=== PATIENT | female | born 1985 | race Caucasian/White ===

== ENCOUNTER 2018-04-11 13:10 | Inpatient (IN) | payer OTHER ==
[2018-04-11 13:11] VITALS: BMI 29.2
--- NOTE | 2018-04-11 13:43 | C.PDOC ---
History Of Present Illness 33 years old female presents to ED for complaints of dysuria and abdominal pain associated with bilateral flank pain and subjective fever that began 2 days ago. Patient also reports dark stool noted 2 days ago. Denies any other physical complaints. Time Seen by Provider: 04/11/18 13:39 Chief Complaint (Nursing): Abdominal Pain History Per: Patient History/Exam Limitations: no limitations Onset/Duration Of Symptoms: Days (2) Current Symptoms Are (Timing): Still Present Location Of Pain/Discomfort: Diffuse Radiation Of Pain To:: Flank (Bilateral) Quality Of Discomfort: "Pain" Associated Symptoms: Fever, Urinary Symptoms. denies: Chills, Nausea, Vomiting, Diarrhea Exacerbating Factors: None Alleviating Factors: None Last Bowel Movement: Today Recent travel outside of the [place]: No Abnormal Vaginal Bleeding: No Past Medical History Reviewed: Historical Data, Nursing Documentation, Vital Signs Vital Signs: Last Vital Signs Temp 99.3 F 04/11/18 13:29 Pulse 105 H 04/11/18 13:29 Resp 16 04/11/18 13:29 BP 122/88 04/11/18 13:29 Pulse Ox 99 04/11/18 13:29 - Medical History PMH: Arthritis, Hepatitis (autoimmune), Rheumatoid Arthritis Family History: States: Unknown Family Hx - Social History Hx Tobacco Use: No Hx Alcohol Use: No Hx Substance Use: No - Immunization History Hx Tetanus Toxoid Vaccination: No Hx Influenza Vaccination: No Hx Pneumococcal Vaccination: No Review Of Systems Constitutional: Positive for: Fever. Negative for: Chills Gastrointestinal: Positive for: Abdominal Pain (Radiating to bilateral flank ). Negative for: Nausea, Vomiting, Diarrhea Genitourinary: Positive for: Dysuria. 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) Back: Normal Inspection, No CVA Tenderness, No Paraspinal Tenderness Extremity: Normal ROM, No Deformity Extremity: Bilateral: Atraumatic, Normal Color And Temperature, Normal ROM Neurological/Psych: Oriented x3, Normal Speech, Normal Motor, Normal Sensation, Normal Reflexes, Other (No focal deficits ) Gait: Steady ED Course And Treatment - Laboratory Results Result Diagrams: 04/11/18 14:14 04/11/18 14:14 O2 Sat by Pulse Oximetry: 99 (RA) Pulse Ox Interpretation: Normal Medical Decision Making Medical Decision Making: ro pyelo renal stone Plan: * Tylenol * IV fluids * Zofran * Occult blood * Urinalysis * Blood work * * pt with persistent ain nause vomiting needs admission accepted joan champagne Disposition - Disposition Disposition: HOSPITALIZED Disposition Time: 07:30 Condition: STABLE - Clinical Impression Clinical Impression: Pyelonephritis - Scribe Statement The provider has reviewed the documentation as recorded by the Scribe Janis Gastelum All medical record entries made by the Scribe were at my direction and personally dictated by me. I have reviewed the chart and agree that the record accurately reflects my personal performance of the history, physical exam, medical decision making, and the department course for this patient. I have also personally directed, reviewed, and agree with the discharge instructions and disposition. Decision To Admit - Pt Status Changed To: Hospital Disposition Of: Inpatient - Admit Certification Admit to Inpatient:: After my assessment, the patient will require hospitalization for at least two midnights. This is because of the severity of symptoms shown, intensity of services needed, and/or the medical risk in this patient being treated as an outpatient. - InPatient: Physician Admission Certification:: persistent vomtiing - . Bed Request Type: Regular Admitting Physician: Hakan Champagne Patient Diagnosis: Pyelonephritis
[2018-04-11] MEDS ORDERED: Sodium Chloride 0.9% 1,000 ML IV ONE (13:45)
[2018-04-11] MEDS ORDERED: Sodium Chloride 0.9% 1,000 ML ONE (14:03)
[2018-04-11 14:31] LABS: BASO % 0.5 % (0.0-2.0); EOS # 0.2 K/uL (0.0-0.7); HEMOGLOBIN 14.6 g/dL (11.0-16.0); LYMPH # 1.9 K/uL (1.0-4.3); MEAN CELL VOLUME 87.9 fL (81.0-99.0); MEAN CORPUSCULAR HEMOGLOBIN 30.9 pg (27.0-31.0); MEAN CORPUSCULAR HGB CONC 35.2 g/dL (33.0-37.0); MEAN PLATELET VOLUME 8.3 fL (7.2-11.7); MONO # 0.7 K/uL (0.0-0.8); MONO % 9.4 % (0.0-10.0); NEUT # 4.8 K/uL (1.8-7.0); NEUT % 62.1 % (50.0-75.0); NRBC % 0.1 % (0.0-2.0); RBC 4.72 Mil/uL (3.80-5.20); RED CELL DISTRIBUTION WIDTH 12.9 % (11.5-14.5); WHITE BLOOD COUNT 7.6 K/uL (4.8-10.8)
[2018-04-11 14:33] LABS: INR 1.2; PROTHROMBIN TIME 13.1 SECONDS (9.7-12.2)
[2018-04-11 14:34] LABS: ALBUMIN 3.6 g/dL (3.5-5.0); ALT/SGPT 86 U/L (9-52); AST/SGOT 67 U/L (14-36); BLOOD UREA NITROGEN 7 mg/dL (7-17); CALCIUM 8.9 mg/dl (8.6-10.4); GFR NON-AFRICAN AMERICAN > 60; LIPASE 136 U/L (23-300)
[2018-04-11 14:45] LABS: HCG,QUALITATIVE URINE NEGATIVE (NEGATIVE)
[2018-04-11 15:07] LABS: SQUAMOUS EPITHIAL 8 /hpf (0-5); URINE BACTERIA OCC (<OCC); URINE BILIRUBIN NEGATIVE (NEGATIVE); URINE BLOOD 2+ (NEGATIVE); URINE CLARITY Hazy (Clear); URINE COLOR Yellow (YELLOW); URINE GLUCOSE (UA) NORMAL (Normal); URINE LEUKOCYTE ESTERASE 3+ Leu/uL (Negative); URINE PROTEIN 2+ mg/dL (NEGATIVE)
--- NOTE | 2018-04-11 16:20 | CT ---
Date of service: 04/11/2018 PROCEDURE: CT abdomen and pelvis HISTORY: Bilateral flank pain-pyelonephritis vs renal stone COMPARISON: Correlation made with abdominal ultrasound 08/26/2017 TECHNIQUE: Contiguous axial images of the abdomen and pelvis performed without oral or intravenous contrast material. . Coronal and Sagittal reformats generated. Radiation dose: Total exam DLP = 1116.13 mGy-cm. This CT exam was performed using one or more of the following dose reduction techniques: Automated exposure control, adjustment of the mA and/or kV according to patient size, and/or use of iterative reconstruction technique. FINDINGS: LOWER THORAX: Lung bases clear. No evidence of infiltrate effusion or basilar pneumothorax. Heart size normal. LIVER: Liver exhibits normal size and attenuation pattern without masses collections or calcifications. Lung bases are GALLBLADDER AND BILE DUCTS: In the cholecystectomy. PANCREAS: Unremarkable. No mass. No ductal dilatation. SPLEEN: Spleen exhibits normal size and attenuation pattern without mass collection or calcification. Splenomegaly. ADRENALS: No adrenal lesions. KIDNEYS AND URETERS: There is mild right-sided hydronephrosis however no obvious ureteral calculi no evidence of right-sided nephrolithiasis or right-sided ureteral calculi.. Questionable minimal thickening of the urothelium proximal right ureter with slight infiltration-induration changes seen in the mesentery adjacent to the to the right ureter as well. Rule out a UTI versus recently passed calculus. Slight columnization of the left ureter with questionable thickening of the urothelium left ureter; rule out cystitis with ascending UTI BLADDER: Urinary bladder is incompletely distended which may account for thick-walled appearance however correlation with urinalysis recommended to exclude UTI REPRODUCTIVE: Uterus unremarkable. There appears to be a small ring-like calcification right adnexa. Questionable small metallic clip in the left aspect of the pelvis adjacent to the uterus possibly fallen into this location from prior gallbladder surgery. APPENDIX: Normal appearing appendix. BOWEL: Evaluation of the bowel is somewhat limited due to the lack of oral contrast material.. Stomach is partially distended with food debris liquid and air. Visualized loops of small bowel exhibit normal contour and caliber. No evidence of acute mechanical small bowel obstruction. Stool and air seen throughout the large bowel. No definitive mural wall thickening. PERITONEUM: Unremarkable. No fluid collection. No free air. Small to medium-sized fat containing umbilical hernia. LYMPH NODES: Unremarkable. No enlarged lymph nodes. VASCULATURE: Unremarkable. No aortic aneurysm. BONES: No fracture or destructive lesion. OTHER FINDINGS: None. IMPRESSION: There is mild right-sided hydronephrosis however no obvious ureteral calculi no evidence of right-sided nephrolithiasis or right-sided ureteral calculi.. Questionable minimal thickening of the urothelium proximal right ureter with slight infiltration-induration changes seen in the mesentery adjacent to the to the right ureter as well. Rule out a UTI versus recently passed calculus.. Slight columnization of the left ureter with questionable thickening of the urothelium left ureter; rule out cystitis with ascending UTI Mild bladder wall thickening in part due to incomplete distention however correlation with urinalysis recommended to exclude UTI Cholecystectomy. Small to medium sized fat containing umbilical hernia. Ring-like calcification right adnexal region
[2018-04-11 17:55] VITALS: RESP 20
[2018-04-12] MEDS: Enoxaparin 40 mg Syringe SC SCH (09:28)
[2018-04-12] MEDS ORDERED: cefTRIAXone IV 1 gm in Dextros 1 GM in Sodium Chloride 0.9% 100 ML IVPB SCH (11:30)
--- NOTE | 2018-04-12 12:36 | CP.PCM.CON ---
History of Present Illness - History of Present Illness History of Present Illness: 33 years old female presents to ED for complaints of dysuria and abdominal pain associated with bilateral flank pain and subjective fever that began 2 days ago. rx for pyelonephritis in progress - Medical History PMH: Arthritis, Hepatitis (autoimmune), Rheumatoid Arthritis Family History: States: Unknown Family Hx Review of Systems - Review of Systems All systems: reviewed and no additional remarkable complaints except - Constitutional Constitutional: As Per HPI - Breasts Breasts: absent: As Per HPI, Change in Shape, Mass, Pain, Nipple Discharge, Nipple Inversion, Skin Changes, Swelling, Other - Cardiovascular Cardiovascular: absent: As Per HPI, Acrocyanosis, Chest Pain, Chest Pain at Rest, Chest Pain with Activity, Claudication, Diaphoresis, Dyspnea, Dyspnea on Exertion, Edema, Irregular Heart Rhythm, Pain Radiating to Arm/Neck/Jaw, Leg Edema, Leg Ulcers, Lightheadedness, Orthopnea, Palpitations, Paroxysmal Nocturnal Dyspnea, Pedal Edema, Radiating Pain, Rapid Heart Rate, Slow Heart Rate, Syncope, Other - Respiratory Respiratory: absent: As Per HPI, Cough, Dyspnea, Hemoptysis, Dyspnea on Exertion, Wheezing, Snoring, Stridor, Pain on Inspiration, Chest Congestion, Excessive Mucous Production, Change in Mucous Color, Pain with Coughing, Other - Gastrointestinal Gastrointestinal: absent: As Per HPI, Abdominal Pain, Belching, Bloating, Change in Bowel Habits, Change in Stool Character, Coffee Ground Emesis, Constipation, Cramping, Diarrhea, Dyspepsia, Dysphagia, Early Satiety, Excessive Flatus, Fecal Incontinence, Heartburn, Hematemesis, Hematochezia, Loose Stools, Melena, Nausea, Odynophagia, Temesmus, Vomiting, Other - Genitourinary Genitourinary: As Per HPI Past Patient History - Infectious Disease Hx of Infectious Diseases: None - Past Medical History & Family History Past Medical History?: Yes - Past Social History Smoking Status: Never Smoked - ENDOCRINE/METABOLIC Hx Systemic Lupus Erythematosus: Yes - HEMATOLOGICAL/ONCOLOGICAL Hx Bruising: Yes (legg/thighs) Other/Comment: Lupus,inmune hepatitis - MUSCULOSKELETAL/RHEUMATOLOGICAL Hx Arthritis: Yes Hx Rheumatoid Arthritis: Yes - GASTROINTESTINAL Other/Comment: autoimmune hepatitis - PSYCHIATRIC Hx Substance Use: No - SURGICAL HISTORY Hx Surgeries: Yes Hx Cholecystectomy: Yes (2017 [facility] [place]) Other/Comment: biopsy ,liver 2005- dx inmune hep - ANESTHESIA Hx Anesthesia: Yes Hx Anesthesia Reactions: No Hx Malignant Hyperthermia: No Has any member of the family had a problem w/ anesthesia?: No Meds Allergies/Adverse Reactions: Allergies Allergy/AdvReac Type Severity Reaction Status Date / Time No Known Allergies Allergy Verified 05/15/16 09:25 - Medications Medications: Current Medications Acetaminophen (Tylenol 325mg Tab) 650 mg PO Q4 PRN PRN Reason: Fever >100.4 F Acetaminophen (Tylenol 325mg Tab) 650 mg PO Q4 PRN PRN Reason: Pain, Mild (1-3) Azathioprine (Imuran) 50 mg PO DAILY [facility] Last Admin: 04/12/18 09:14 Dose: 50 mg Enoxaparin Sodium (Lovenox) 40 mg SC DAILY [facility] Last Admin: 04/12/18 09:28 Dose: 40 mg Hydroxychloroquine Sulfate (Plaquenil) 200 mg PO BID [facility]; Protocol Last Admin: 04/12/18 09:14 Dose: 200 mg Ceftriaxone Sodium 1 gm/ (Sodium Chloride) 100 mls @ 200 mls/hr IVPB Q12H [facility]; Protocol Last Admin: 04/12/18 11:57 Dose: 200 mls/hr Influenza Virus Vaccine (Fluzone Quad [id number]) 60 mcg IM .ONCE ONE Stop: 04/14/18 10:01 Pneumococcal Polyvalent Vaccine (Pneumovax 23 Vaccine) 0.5 ml IM .ONCE ONE Stop: 04/14/18 10:01 Prednisone (Prednisone Tab) 10 mg PO DAILY [facility] Last Admin: 04/12/18 09:14 Dose: 10 mg Tramadol HCl (Ultram) 50 mg PO Q8 PRN PRN Reason: Pain, severe (8-10) Last Admin: 04/12/18 12:24 Dose: 50 mg Physical Exam - Constitutional Appears: Toxic, In Acute Distress, Chronically Ill - Head Exam Head Exam: NORMOCEPHALIC - Eye Exam Eye Exam: PERRL - ENT Exam ENT Exam: Mucous Membranes Dry - Neck Exam Neck exam: Negative for: Lymphadenopathy - Respiratory Exam Respiratory Exam: Decreased Breath Sounds - Cardiovascular Exam Cardiovascular Exam: REGULAR RHYTHM - GI/Abdominal Exam GI & Abdominal Exam: Diminished Bowel Sounds, Soft. absent: Tenderness - Rectal Exam Rectal Exam: Deferred - Exam Exam: NORMAL INSPECTION - Extremities Exam Extremities exam: Negative for: pedal edema - Back Exam Back exam: CVA tenderness (L). absent: CVA tenderness (R), paraspinal tenderness - Neurological Exam Neurological exam: Alert, CN II-XII Intact, Oriented x3, Reflexes Normal - Psychiatric Exam Psychiatric exam: Normal Mood Results - Vital Signs Recent Vital Signs: Last Vital Signs Temp 98.2 F 04/12/18 07:32 Pulse 72 04/12/18 07:32 Resp 20 04/12/18 07:32 BP 112/67 04/12/18 07:32 Pulse Ox 99 04/12/18 07:43 - Labs Result Diagrams: 04/13/18 08:23 04/13/18 08:23 Labs: Laboratory Results - last 24 hr 04/11/18 04/11/18 04/11/18 14:14 14:14 14:14 WBC 7.6 RBC 4.72 Hgb 14.6 Hct 41.4 MCV 87.9 MCH 30.9 MCHC 35.2 RDW 12.9 Plt Count 188 MPV 8.3 Neut % (Auto) 62.1 Lymph % (Auto) 25.0 Bollinger % (Auto) 9.4 Eos % (Auto) 3.0 Baso % (Auto) 0.5 Neut # (Auto) 4.8 Lymph # (Auto) 1.9 Bollinger # (Auto) 0.7 Eos # (Auto) 0.2 Baso # (Auto) 0.0 PT 13.1 H INR 1.2 APTT 32 Sodium Potassium Chloride Carbon Dioxide Anion Gap BUN Creatinine Est GFR ( Amer) Est GFR (Non-Af Amer) Random Glucose Calcium Total Bilirubin AST ALT Alkaline Phosphatase Total Protein Albumin Globulin Albumin/Globulin Ratio Lipase Urine Color Yellow Urine Clarity Hazy Urine pH 6.0 Ur Specific White [place]wl 1.019 Urine Protein 2+ H Urine Glucose (UA) Normal Urine Ketones Negative Urine Blood 2+ H Urine Nitrate Negative Urine Bilirubin Negative Urine Urobilinogen 2.0 H Ur Leukocyte Esterase 3+ H Urine WBC (Auto) 397 H Urine RBC (Auto) 93 H Ur Squamous Epith Cells 8 H Urine Bacteria Occ H Urine HCG, Qual Negative Stool Occult Blood 04/11/18 04/11/18 14:14 14:17 WBC RBC Hgb Hct MCV MCH MCHC RDW Plt Count MPV Neut % (Auto) Lymph % (Auto) Bollinger % (Auto) Eos % (Auto) Baso % (Auto) Neut # (Auto) Lymph # (Auto) Bollinger # (Auto) Eos # (Auto) Baso # (Auto) PT INR APTT Sodium 140 Potassium 3.7 Chloride 105 Carbon Dioxide 23 Anion Gap 15 BUN 7 Creatinine 0.5 L Est GFR ( Amer) > 60 Est GFR (Non-Af Amer) > 60 Random Glucose 98 Calcium 8.9 Total Bilirubin 0.7 AST 67 H ALT 86 H D Alkaline Phosphatase 117 Total Protein 7.2 Albumin 3.6 Globulin 3.5 Albumin/Globulin Ratio 1.0 Lipase 136 Urine Color Urine Clarity Urine pH Ur Specific [place]wl Urine Protein Urine Glucose (UA) Urine Ketones Urine Blood Urine Nitrate Urine Bilirubin Urine Urobilinogen Ur Leukocyte Esterase Urine WBC (Auto) Urine RBC (Auto) Ur Squamous Epith Cells Urine Bacteria Urine HCG, Qual Stool Occult Blood Negative Assessment & Plan (1) Pyelonephritis Status: Acute - Assessment and Plan (Free Text) Assessment: IV cefepime gu eval
[2018-04-12] MEDS: Cefepime IV 1 gm in Dextrose 1 GM/50 ML BAG IVPB SCH (14:26)
[2018-04-12] MEDS: Sodium Chloride 0.9% 1,000 ML IV SCH (14:30)
--- NOTE | 2018-04-12 19:47 | CP.PCM.HP ---
Past Patient History - Infectious Disease Hx of Infectious Diseases: None - Past Medical History & Family History Past Medical History?: Yes - Past Social History Smoking Status: Never Smoked - ENDOCRINE/METABOLIC Hx Systemic Lupus Erythematosus: Yes - HEMATOLOGICAL/ONCOLOGICAL Hx Bruising: Yes (legg/thighs) Other/Comment: Lupus,inmune hepatitis - MUSCULOSKELETAL/RHEUMATOLOGICAL Hx Arthritis: Yes Hx Rheumatoid Arthritis: Yes - GASTROINTESTINAL Other/Comment: autoimmune hepatitis - PSYCHIATRIC Hx Substance Use: No - SURGICAL HISTORY Hx Surgeries: Yes Hx Chole[place]ectomy: Yes ([place] [facility] [place] Other/Comment: biopsy ,liver 2005- dx inmune hep - ANESTHESIA Hx Anesthesia: Yes Hx Anesthesia Reactions: No Hx Malignant Hyperthermia: No Has any member of the family had a problem w/ anesthesia?: No Meds Allergies/Adverse Reactions: Allergies Allergy/AdvReac Type Severity Reaction Status Date / Time No Known Allergies Allergy Verified 05/15/16 09:25 Results - Vital Signs Recent Vital Signs: Last Vital Signs Temp 97.8 F 04/12/18 15:53 Pulse 76 04/12/18 15:53 Resp 20 04/12/18 15:53 BP 124/83 04/12/18 15:53 Pulse Ox 97 04/12/18 15:53 - Labs Result Diagrams: 04/11/18 14:14 04/11/18 14:14
[2018-04-13] MEDS: Cefepime IV 1 gm in Dextrose 1 GM/50 ML BAG IVPB SCH ×2 (00:01→12:18)
[2018-04-13] MEDS: Sodium Chloride 0.9% 1,000 ML IV SCH ×2 (02:45→14:06)
[2018-04-13 08:30] LABS: BASO % 0.5 % (0.0-2.0); EOS # 0.2 K/uL (0.0-0.7); EOS % 3.8 % (0.0-4.0); HEMOGLOBIN 14.9 g/dL (11.0-16.0); LYMPH % 39.8 % (20.0-40.0); MEAN CELL VOLUME 89.2 fL (81.0-99.0); MEAN CORPUSCULAR HEMOGLOBIN 31.2 pg (27.0-31.0); MEAN PLATELET VOLUME 8.4 fL (7.2-11.7); MONO # 0.3 K/uL (0.0-0.8); MONO % 6.5 % (0.0-10.0); NEUT # 2.4 K/uL (1.8-7.0); NEUT % 49.4 % (50.0-75.0); NRBC % 0.1 % (0.0-2.0); RBC 4.78 Mil/uL (3.80-5.20); RED CELL DISTRIBUTION WIDTH 13.1 % (11.5-14.5); WHITE BLOOD COUNT 4.9 K/uL (4.8-10.8)
[2018-04-13 08:50] LABS: ALBUMIN 3.5 g/dL (3.5-5.0); ALT/SGPT 102 U/L (9-52); AST/SGOT 113 U/L (14-36); BLOOD UREA NITROGEN 8 mg/dL (7-17); CALCIUM 8.7 mg/dl (8.6-10.4); GFR NON-AFRICAN AMERICAN > 60
[2018-04-13] MEDS: Enoxaparin 40 mg Syringe SC SCH (09:37)
--- NOTE | 2018-04-13 10:47 | CP.PCM.PN ---
Subjective - Date & Time of Evaluation Date of Evaluation: 04/13/18 Time of Evaluation: 10:35 - Subjective Subjective: 33 y/o F with pmhx of lupus, RA, autoimmune hepatitis, anemia who presents for 3 days of dysuria, increased urge to urinate, and lower abdominal pain that radiated to the back. Patient did not notice any change in urine color or smell. Upon admission she was placed on ABx and she has been doing better now. Reports improvement overall, however she notes persistent lower back pain. Rheum: Dr. Quijano PMHx: lupus, RA, autoimmune hepatitis, anemia Psurg: liver biopsy 2004, cholecystectomy 2017 Famhx: mom: DMII, HTN, CAD, HLD, pacemaker, stroke, colon ca at 40 dad: DMII, HTN, CAD, COPD, asthma, HLD maternal aunt: lupus social: quit smoking 3 years ago, smoked 1-2ppd for 10 years, denies alcohol and drugs Objective - Vital Signs/Intake and Output Vital Signs (last 24 hours): Temp Pulse Resp BP Pulse Ox 98.2 F 67 20 115/73 99 04/13/18 08:19 04/13/18 08:19 04/13/18 08:19 04/13/18 08:19 04/13/18 08:19 Intake and Output: 04/13/18 04/13/18 06:59 18:59 Intake Total 840 Balance 840 - Medications Medications: Current Medications Acetaminophen (Tylenol 325mg Tab) 650 mg PO Q4 PRN PRN Reason: Fever >100.4 F Acetaminophen (Tylenol 325mg Tab) 650 mg PO Q4 PRN PRN Reason: Pain, Mild (1-3) Azathioprine (Imuran) 50 mg PO DAILY [facility] Last Admin: 04/13/18 09:37 Dose: 50 mg Enoxaparin Sodium (Lovenox) 40 mg SC DAILY [facility] Last Admin: 04/13/18 09:37 Dose: 40 mg Hydroxychloroquine Sulfate (Plaquenil) 200 mg PO BID [facility]; Protocol Last Admin: 04/13/18 09:37 Dose: 200 mg Cefepime HCl (Maxipime Iv 1 Gm Premix) 1 gm in 50 mls @ 100 mls/hr IVPB Q12H [facility]; Protocol Last Admin: 04/13/18 00:01 Dose: 100 mls/hr Sodium Chloride (Sodium Chloride 0.9%) 1,000 mls @ 80 mls/hr IV .[id number] [facility] Last Admin: 04/13/18 02:45 Dose: 80 mls/hr Influenza Virus Vaccine (Fluzone Quad [id number]) 60 mcg IM .ONCE ONE Stop: 04/14/18 10:01 Morphine Sulfate (Morphine) 2 mg IVP Q4 PRN PRN Reason: Pain, severe (8-10) Last Admin: 04/13/18 08:09 Dose: 2 mg Pneumococcal Polyvalent Vaccine (Pneumovax 23 Vaccine) 0.5 ml IM .ONCE ONE Stop: 04/14/18 10:01 Prednisone (Prednisone Tab) 10 mg PO DAILY [facility] Last Admin: 04/13/18 09:37 Dose: 10 mg - Labs Labs: 04/13/18 08:23 04/13/18 08:23 PT 13.1 SECONDS (9.7-12.2) H 04/11/18 14:14 INR 1.2 04/11/18 14:14 APTT 32 SECONDS (21-34) 04/11/18 14:14 - Constitutional Appears: No Acute Distress - Head Exam Head Exam: ATRAUMATIC, NORMOCEPHALIC - Eye Exam Eye Exam: EOMI - ENT Exam ENT Exam: Mucous Membranes Moist - Respiratory Exam Respiratory Exam: Clear to Ausculation Bilateral, NORMAL BREATHING PATTERN - Cardiovascular Exam Cardiovascular Exam: REGULAR RHYTHM - GI/Abdominal Exam GI & Abdominal Exam: Soft, Tenderness (mild). absent: Guarding - Back Exam Back Exam: CVA tenderness (L), CVA tenderness (R) - Neurological Exam Neurological Exam: Alert, Awake, Oriented x3 - Psychiatric Exam Psychiatric exam: Normal Affect, Normal Mood - Skin Skin Exam: Dry, Warm Assessment and Plan - Assessment and Plan (Free Text) Plan: UTI Urology consult placed to Dr. Solomon dominguez appreciated ID consult placed to Dr. Briana dominguez appreciated CT abdomen pelvis- consider passed stone, no obstruction, areas of thickening consistent with UTI UA: +3 Leukocyte esterase, 397 WBC Urine Cx: G- rods- follow up G&S Blood Cx: NGTD Normal white count today Afebrile Tylenol prn pain and fever Morphine 2mg IVP q4prn breakthrough pain Cefepime 1g q12hrs Lupus Plaquenil 200mg PO BID Auto-immune hepatitis Imuran 50mg PO daily elevated LFT's- monitoring RA Prednisone 10mg PO QD Plaquenil 200mg PO BID Imuran 50mg PO daily PPX Lovenox 40mg SC daily Pepcid 20mg PO BID Case to be discussed with Dr. Marinelli All medical management per Dr. Sukhi Marinelli
--- NOTE | 2018-04-13 12:45 | CP.PCM.PN ---
Subjective - Date & Time of Evaluation Date of Evaluation: 04/13/18 Time of Evaluation: 07:00 - Subjective Subjective: Reports improvement overall, however she notes persistent lower back pain. Objective - Vital Signs/Intake and Output Vital Signs (last 24 hours): Temp Pulse Resp BP Pulse Ox 98.2 F 67 20 115/73 99 04/13/18 08:19 04/13/18 08:19 04/13/18 08:19 04/13/18 08:19 04/13/18 08:19 Intake and Output: 04/13/18 04/13/18 06:59 18:59 Intake Total 840 Balance 840 - Medications Medications: Current Medications Acetaminophen (Tylenol 325mg Tab) 650 mg PO Q4 PRN PRN Reason: Fever >100.4 F Acetaminophen (Tylenol 325mg Tab) 650 mg PO Q4 PRN PRN Reason: Pain, Mild (1-3) Azathioprine (Imuran) 50 mg PO DAILY [facility] Last Admin: 04/13/18 09:37 Dose: 50 mg Enoxaparin Sodium (Lovenox) 40 mg SC DAILY [facility] Last Admin: 04/13/18 09:37 Dose: 40 mg Famotidine (Pepcid) 20 mg PO BID [facility] Hydroxychloroquine Sulfate (Plaquenil) 200 mg PO BID [facility]; Protocol Last Admin: 04/13/18 09:37 Dose: 200 mg Cefepime HCl (Maxipime Iv 1 Gm Premix) 1 gm in 50 mls @ 100 mls/hr IVPB Q12H [facility]; Protocol Last Admin: 04/13/18 12:18 Dose: 100 mls/hr Sodium Chloride (Sodium Chloride 0.9%) 1,000 mls @ 80 mls/hr IV .[id number] [facility] Last Admin: 04/13/18 02:45 Dose: 80 mls/hr Influenza Virus Vaccine (Fluzone Quad [id number]) 60 mcg IM .ONCE ONE Stop: 04/14/18 10:01 Morphine Sulfate (Morphine) 2 mg IVP Q4 PRN PRN Reason: Pain, severe (8-10) Last Admin: 04/13/18 12:18 Dose: 2 mg Pneumococcal Polyvalent Vaccine (Pneumovax 23 Vaccine) 0.5 ml IM .ONCE ONE Stop: 04/14/18 10:01 Prednisone (Prednisone Tab) 10 mg PO DAILY [facility] Last Admin: 04/13/18 09:37 Dose: 10 mg - Labs Labs: 04/13/18 08:23 04/13/18 08:23 PT 13.1 SECONDS (9.7-12.2) H 04/11/18 14:14 INR 1.2 04/11/18 14:14 APTT 32 SECONDS (21-34) 04/11/18 14:14 - Constitutional Appears: Non-toxic - Head Exam Head Exam: NORMOCEPHALIC - Eye Exam Eye Exam: absent: Scleral icterus - ENT Exam ENT Exam: Mucous Membranes Dry - Neck Exam Neck Exam: absent: Lymphadenopathy - Respiratory Exam Respiratory Exam: Decreased Breath Sounds - Cardiovascular Exam Cardiovascular Exam: REGULAR RHYTHM - GI/Abdominal Exam GI & Abdominal Exam: Distended Assessment and Plan (1) Pyelonephritis Status: Acute - Assessment and Plan (Free Text) Assessment: await cultures
--- NOTE | 2018-04-13 15:52 | CP.PCM.PN ---
Subjective - Date & Time of Evaluation Date of Evaluation: 04/13/18 Time of Evaluation: 07:30 - Subjective Subjective: clinically same Objective - Vital Signs/Intake and Output Vital Signs (last 24 hours): Temp Pulse Resp BP Pulse Ox 98.2 F 67 20 115/73 99 04/13/18 08:19 04/13/18 08:19 04/13/18 08:19 04/13/18 08:19 04/13/18 08:19 Intake and Output: 04/13/18 04/13/18 06:59 18:59 Intake Total 1954 Balance 1954 - Medications Medications: Current Medications Acetaminophen (Tylenol 325mg Tab) 650 mg PO Q4 PRN PRN Reason: Fever >100.4 F Acetaminophen (Tylenol 325mg Tab) 650 mg PO Q4 PRN PRN Reason: Pain, Mild (1-3) Azathioprine (Imuran) 50 mg PO DAILY [facility] Last Admin: 04/13/18 09:37 Dose: 50 mg Enoxaparin Sodium (Lovenox) 40 mg SC DAILY [facility] Last Admin: 04/13/18 09:37 Dose: 40 mg Famotidine (Pepcid) 20 mg PO BID [facility] Hydroxychloroquine Sulfate (Plaquenil) 200 mg PO BID [facility]; Protocol Last Admin: 04/13/18 09:37 Dose: 200 mg Cefepime HCl (Maxipime Iv 1 Gm Premix) 1 gm in 50 mls @ 100 mls/hr IVPB Q12H [facility]; Protocol Last Admin: 04/13/18 12:18 Dose: 100 mls/hr Sodium Chloride (Sodium Chloride 0.9%) 1,000 mls @ 80 mls/hr IV .[id number] [facility] Last Admin: 04/13/18 14:06 Dose: Not Given Influenza Virus Vaccine (Fluzone Quad [id number]) 60 mcg IM .ONCE ONE Stop: 04/14/18 10:01 Morphine Sulfate (Morphine) 2 mg IVP Q4 PRN PRN Reason: Pain, severe (8-10) Last Admin: 04/13/18 12:18 Dose: 2 mg Pneumococcal Polyvalent Vaccine (Pneumovax 23 Vaccine) 0.5 ml IM .ONCE ONE Stop: 04/14/18 10:01 Prednisone (Prednisone Tab) 10 mg PO DAILY [facility] Last Admin: 04/13/18 09:37 Dose: 10 mg - Labs Labs: 04/13/18 08:23 04/13/18 08:23 PT 13.1 SECONDS (9.7-12.2) H 04/11/18 14:14 INR 1.2 04/11/18 14:14 APTT 32 SECONDS (21-34) 04/11/18 14:14 - Constitutional Appears: Well - Head Exam Head Exam: ATRAUMATIC, NORMAL INSPECTION, NORMOCEPHALIC - Eye Exam Eye Exam: EOMI, Normal appearance, PERRL Pupil Exam: NORMAL ACCOMODATION, PERRL - ENT Exam ENT Exam: Mucous Membranes Moist, Normal Exam - Neck Exam Neck Exam: Full ROM, Normal Inspection. absent: Lymphadenopathy - Respiratory Exam Respiratory Exam: Decreased Breath Sounds - Cardiovascular Exam Cardiovascular Exam: REGULAR RHYTHM, +S1, +S2 - GI/Abdominal Exam GI & Abdominal Exam: Soft, Diminished Bowel Sounds - Rectal Exam Rectal Exam: Deferred
[2018-04-14] MEDS: Cefepime IV 1 gm in Dextrose 1 GM/50 ML BAG IVPB SCH ×3 (00:58→13:39)
[2018-04-14] MEDS: Sodium Chloride 0.9% 1,000 ML IV SCH ×3 (02:15→15:25)
[2018-04-14 07:21] LABS: BASO % 0.4 % (0.0-2.0); EOS # 0.2 K/uL (0.0-0.7); EOS % 3.7 % (0.0-4.0); HEMOGLOBIN 13.9 g/dL (11.0-16.0); LYMPH # 1.8 K/uL (1.0-4.3); LYMPH % 36.5 % (20.0-40.0); MEAN CELL VOLUME 90.2 fL (81.0-99.0); MEAN CORPUSCULAR HEMOGLOBIN 31.9 pg (27.0-31.0); MEAN CORPUSCULAR HGB CONC 35.3 g/dL (33.0-37.0); MEAN PLATELET VOLUME 8.5 fL (7.2-11.7); MONO # 0.4 K/uL (0.0-0.8); MONO % 7.7 % (0.0-10.0); NEUT # 2.6 K/uL (1.8-7.0); NEUT % 51.7 % (50.0-75.0); RBC 4.36 Mil/uL (3.80-5.20); RED CELL DISTRIBUTION WIDTH 12.9 % (11.5-14.5)
[2018-04-14 08:16] LABS: ALBUMIN 3.3 g/dL (3.5-5.0); ALT/SGPT 85 U/L (9-52); AST/SGOT 75 U/L (14-36); BLOOD UREA NITROGEN 8 mg/dL (7-17); CALCIUM 8.6 mg/dl (8.6-10.4); GFR NON-AFRICAN AMERICAN > 60
[2018-04-14] MEDS ORDERED: Pneumococcal 23-Valent Vaccine IM ONE (10:00)
[2018-04-14] MEDS ORDERED: Influenza Vaccine 60 MCG/0.5 ML SYR (3 yr & up) IM ONE (10:00)
[2018-04-14] MEDS: Enoxaparin 40 mg Syringe SC SCH (10:36)
--- NOTE | 2018-04-14 16:32 | CP.PCM.PN ---
Subjective - Date & Time of Evaluation Date of Evaluation: 04/14/18 Time of Evaluation: 09:00 - Subjective Subjective: c/o severe pain needs eval repeat CT pending IV rx reordered Objective - Vital Signs/Intake and Output Vital Signs (last 24 hours): Temp Pulse Resp BP Pulse Ox 98.2 F 63 20 121/81 98 04/14/18 07:42 04/14/18 07:42 04/14/18 07:42 04/14/18 07:42 04/14/18 07:42 Intake and Output: 04/14/18 04/14/18 06:59 18:59 Intake Total 840 Balance 840 - Medications Medications: Current Medications Acetaminophen (Tylenol 325mg Tab) 650 mg PO Q4 PRN PRN Reason: Fever >100.4 F Acetaminophen (Tylenol 325mg Tab) 650 mg PO Q4 PRN PRN Reason: Pain, Mild (1-3) Azathioprine (Imuran) 50 mg PO DAILY [facility] Last Admin: 04/14/18 10:36 Dose: 50 mg Enoxaparin Sodium (Lovenox) 40 mg SC DAILY [facility] Last Admin: 04/14/18 10:36 Dose: 40 mg Famotidine (Pepcid) 20 mg PO BID [facility] Last Admin: 04/14/18 10:37 Dose: 20 mg Hydroxychloroquine Sulfate (Plaquenil) 200 mg PO BID [facility]; Protocol Last Admin: 04/14/18 10:36 Dose: 200 mg Cefepime HCl (Maxipime Iv 1 Gm Premix) 1 gm in 50 mls @ 100 mls/hr IVPB Q12H [facility]; Protocol Last Admin: 04/14/18 13:39 Dose: Not Given Sodium Chloride (Sodium Chloride 0.9%) 1,000 mls @ 80 mls/hr IV .[id number] [facility] Last Admin: 04/14/18 15:25 Dose: Not Given Morphine Sulfate (Morphine) 2 mg IVP Q4 PRN PRN Reason: Pain, severe (8-10) Last Admin: 04/14/18 15:20 Dose: 2 mg Prednisone (Prednisone Tab) 10 mg PO DAILY [facility] Last Admin: 04/14/18 10:37 Dose: 10 mg - Labs Labs: 04/14/18 07:00 04/14/18 07:00 PT 13.1 SECONDS (9.7-12.2) H 04/11/18 14:14 INR 1.2 04/11/18 14:14 APTT 32 SECONDS (21-34) 04/11/18 14:14 - Constitutional Appears: Non-toxic, Chronically Ill - Head Exam Head Exam: NORMOCEPHALIC - Eye Exam Eye Exam: PERRL - ENT Exam ENT Exam: Mucous Membranes Dry - Neck Exam Neck Exam: absent: Lymphadenopathy - Respiratory Exam Respiratory Exam: Decreased Breath Sounds - Cardiovascular Exam Cardiovascular Exam: REGULAR RHYTHM, +S1, +S2 - GI/Abdominal Exam GI & Abdominal Exam: Distended - Rectal Exam Rectal Exam: Deferred Assessment and Plan (1) Pyelonephritis Status: Acute - Assessment and Plan (Free Text) Assessment: ? radiculopathy pyelo severe pain consider and Neuro eval
--- NOTE | 2018-04-14 16:36 | CP.PCM.PN ---
Subjective - Date & Time of Evaluation Date of Evaluation: 04/14/18 Time of Evaluation: 09:30 - Subjective Subjective: PGY 3 Med Note- Dr. Yeison Marinelli's service Patient seen and examined in no acute distress. Patient admits to back discomfort. Patient denies dysuria, chest pain or palpitations at this time Objective - Vital Signs/Intake and Output Vital Signs (last 24 hours): Temp Pulse Resp BP Pulse Ox 98.2 F 63 20 121/81 98 04/14/18 07:42 04/14/18 07:42 04/14/18 07:42 04/14/18 07:42 04/14/18 07:42 Intake and Output: 04/14/18 04/14/18 06:59 18:59 Intake Total 840 Balance 840 - Medications Medications: Current Medications Acetaminophen (Tylenol 325mg Tab) 650 mg PO Q4 PRN PRN Reason: Fever >100.4 F Acetaminophen (Tylenol 325mg Tab) 650 mg PO Q4 PRN PRN Reason: Pain, Mild (1-3) Azathioprine (Imuran) 50 mg PO DAILY [facility] Last Admin: 04/14/18 10:36 Dose: 50 mg Enoxaparin Sodium (Lovenox) 40 mg SC DAILY [facility] Last Admin: 04/14/18 10:36 Dose: 40 mg Famotidine (Pepcid) 20 mg PO BID [facility] Last Admin: 04/14/18 10:37 Dose: 20 mg Hydroxychloroquine Sulfate (Plaquenil) 200 mg PO BID [facility]; Protocol Last Admin: 04/14/18 10:36 Dose: 200 mg Cefepime HCl (Maxipime Iv 1 Gm Premix) 1 gm in 50 mls @ 100 mls/hr IVPB Q12H [facility]; Protocol Last Admin: 04/14/18 13:39 Dose: Not Given Sodium Chloride (Sodium Chloride 0.9%) 1,000 mls @ 80 mls/hr IV .[id number] [facility] Last Admin: 04/14/18 15:25 Dose: Not Given Morphine Sulfate (Morphine) 2 mg IVP Q4 PRN PRN Reason: Pain, severe (8-10) Last Admin: 04/14/18 15:20 Dose: 2 mg Prednisone (Prednisone Tab) 10 mg PO DAILY [facility] Last Admin: 04/14/18 10:37 Dose: 10 mg - Labs Labs: 04/14/18 07:00 04/14/18 07:00 PT 13.1 SECONDS (9.7-12.2) H 04/11/18 14:14 INR 1.2 04/11/18 14:14 APTT 32 SECONDS (21-34) 04/11/18 14:14 - Constitutional Appears: Non-toxic, No Acute Distress - Head Exam Head Exam: ATRAUMATIC, NORMAL INSPECTION - Eye Exam Eye Exam: EOMI, Normal appearance - ENT Exam ENT Exam: Mucous Membranes Moist - Neck Exam Neck Exam: Full ROM - Respiratory Exam Respiratory Exam: NORMAL BREATHING PATTERN - Cardiovascular Exam Cardiovascular Exam: +S1, +S2 - GI/Abdominal Exam GI & Abdominal Exam: Soft, Normal Bowel Sounds - Extremities Exam Extremities Exam: Full ROM - Back Exam Back Exam: NORMAL INSPECTION - Neurological Exam Neurological Exam: Alert, Awake, Oriented x3 - Psychiatric Exam Psychiatric exam: Normal Affect, Normal Mood - Skin Skin Exam: Normal Color, Warm Assessment and Plan - Assessment and Plan (Free Text) Assessment: UTI Urology consult placed to Dr. Solomon Rockwell- F/U ID consult placed to Dr. Mota - [facility] appreciated CT abdomen pelvis- consider passed stone, no obstruction, areas of thickening consistent with UTI UA: +3 Leukocyte esterase, 397 WBC. Repeat UA and UC bc of initial low colony count Urine Cx: G- rods- follow up G&S Blood Cx: NGTD Motrin PRN. Tylenol discontinued bc of elevated LFTs Morphine 2mg IVP q4prn breakthrough pain increased to Morphine 4 mg Cefepime 1g q12hrs Lupus Plaquenil 200mg PO BID Auto-immune hepatitis Imuran 50mg PO daily Elevated LFT's- monitoring Rheumatoid Arthritis Prednisone 10mg PO QD Plaquenil 200mg PO BID Imuran 50mg PO daily PPX Lovenox 40mg SC daily Pepcid 20mg PO BID Case discussed with Dr. Marinelli All medical management and planning per Dr. Sukhi Marinelli
[2018-04-14] MEDS: Morphine 4 MG/ML VIAL IVP PRN (18:11)
--- NOTE | 2018-04-14 21:01 | CP.PCM.PN ---
Subjective - Date & Time of Evaluation Date of Evaluation: 04/14/18 Time of Evaluation: 07:30 - Subjective Subjective: clinically same Objective - Vital Signs/Intake and Output Vital Signs (last 24 hours): Temp Pulse Resp BP Pulse Ox 98.7 F 68 20 117/74 98 04/14/18 16:35 04/14/18 16:35 04/14/18 16:35 04/14/18 16:35 04/14/18 16:35 - Medications Medications: Current Medications Acetaminophen (Tylenol 325mg Tab) 650 mg PO Q4 PRN PRN Reason: Fever >100.4 F Acetaminophen (Tylenol 325mg Tab) 650 mg PO Q4 PRN PRN Reason: Pain, Mild (1-3) Azathioprine (Imuran) 50 mg PO DAILY [facility] Last Admin: 04/14/18 10:36 Dose: 50 mg Enoxaparin Sodium (Lovenox) 40 mg SC DAILY [facility] Last Admin: 04/14/18 10:36 Dose: 40 mg Famotidine (Pepcid) 20 mg PO BID [facility] Last Admin: 04/14/18 17:38 Dose: 20 mg Hydroxychloroquine Sulfate (Plaquenil) 200 mg PO BID [facility]; Protocol Last Admin: 04/14/18 17:37 Dose: 200 mg Cefepime HCl (Maxipime Iv 1 Gm Premix) 1 gm in 50 mls @ 100 mls/hr IVPB Q12H [facility]; Protocol Last Admin: 04/14/18 13:39 Dose: Not Given Sodium Chloride (Sodium Chloride 0.9%) 1,000 mls @ 80 mls/hr IV .[id number] [facility] Last Admin: 04/14/18 15:25 Dose: Not Given Ibuprofen (Motrin Tab) 600 mg PO TID PRN PRN Reason: Fever >100.4 F Last Admin: 04/14/18 17:39 Dose: 600 mg Morphine Sulfate (Morphine) 4 mg IVP Q4 PRN PRN Reason: Pain, severe (8-10) Last Admin: 04/14/18 18:11 Dose: 4 mg Prednisone (Prednisone Tab) 10 mg PO DAILY [facility] Last Admin: 04/14/18 10:37 Dose: 10 mg - Labs Labs: 04/14/18 07:00 04/14/18 07:00 PT 13.1 SECONDS (9.7-12.2) H 09/30/18 14:14 INR 1.2 04/11/18 14:14 APTT 32 SECONDS (21-34) 04/11/18 14:14
[2018-04-15] MEDS: Cefepime IV 1 gm in Dextrose 1 GM/50 ML BAG IVPB SCH ×2 (00:30→14:00)
[2018-04-15] MEDS: Morphine 4 MG/ML VIAL IVP PRN ×3 (00:35→17:25)
[2018-04-15] MEDS: Sodium Chloride 0.9% 1,000 ML IV SCH ×2 (03:15→05:30)
[2018-04-15 05:10] LABS: SQUAMOUS EPITHIAL 2 /hpf (0-5); URINE BILIRUBIN NEGATIVE (NEGATIVE); URINE BLOOD NEGATIVE (NEGATIVE); URINE CLARITY Clear (Clear); URINE COLOR Yellow (YELLOW); URINE GLUCOSE (UA) NORMAL (Normal); URINE LEUKOCYTE ESTERASE NEG Leu/uL (Negative); URINE PROTEIN NEGATIVE (NEGATIVE); URINE UROBILINOGEN NORMAL mg/dL (0.2-1.0)
[2018-04-15 07:21] LABS: BASO % 0.3 % (0.0-2.0); EOS # 0.2 K/uL (0.0-0.7); EOS % 3.4 % (0.0-4.0); HEMOGLOBIN 13.7 g/dL (11.0-16.0); LYMPH # 1.9 K/uL (1.0-4.3); LYMPH % 30.8 % (20.0-40.0); MEAN CELL VOLUME 89.2 fL (81.0-99.0); MEAN CORPUSCULAR HGB CONC 34.8 g/dL (33.0-37.0); MEAN PLATELET VOLUME 8.2 fL (7.2-11.7); MONO # 0.5 K/uL (0.0-0.8); MONO % 7.9 % (0.0-10.0); NEUT # 3.5 K/uL (1.8-7.0); NEUT % 57.6 % (50.0-75.0); NRBC % 0.1 % (0.0-2.0); RBC 4.41 Mil/uL (3.80-5.20); RED CELL DISTRIBUTION WIDTH 12.6 % (11.5-14.5)
[2018-04-15 08:16] LABS: HEPATITIS B SURFACE AG Negative (NEGATIVE)
[2018-04-15 08:19] LABS: ALB/GLOB RATIO 0.9 (1.0-2.1); ALBUMIN 3.1 g/dL (3.5-5.0); ALT/SGPT 70 U/L (9-52); AST/SGOT 54 U/L (14-36); BLOOD UREA NITROGEN 8 mg/dL (7-17); CALCIUM 8.3 mg/dl (8.6-10.4); GFR NON-AFRICAN AMERICAN > 60
[2018-04-15 08:23] LABS: HEPATITIS A IGM NEGATIVE (NEGATIVE); HEPATITIS B CORE AB NEGATIVE (NEGATIVE)
[2018-04-15 08:33] LABS: HEPATITIS C ANTIBODY NEGATIVE (NEGATIVE)
[2018-04-15] MEDS: Enoxaparin 40 mg Syringe SC SCH (10:48)
--- NOTE | 2018-04-15 11:29 | CP.PCM.PN ---
Subjective - Date & Time of Evaluation Date of Evaluation: 04/15/18 Time of Evaluation: 07:00 - Subjective Subjective: PGY2 - Progress Note for Dr. Sukhi Marinelli Patient seen and examined sitting in chair at bedside. Patient has no urinary symptoms. Patient denies burning with urination. Patient denies dysuria or changes in urine color. Patient says she is still having significant CVA tenderness. Patient denies nausea, vomiting, constipation, or diarrhea. Objective - Vital Signs/Intake and Output Vital Signs (last 24 hours): Temp Pulse Resp BP Pulse Ox 98.2 F 69 20 125/85 96 04/15/18 07:30 04/15/18 07:30 04/15/18 07:30 04/15/18 07:30 04/15/18 07:30 Intake and Output: 04/15/18 04/15/18 06:59 18:59 Intake Total 965 Balance 965 - Medications Medications: Current Medications Acetaminophen (Tylenol 325mg Tab) 650 mg PO Q4 PRN PRN Reason: Fever >100.4 F Acetaminophen (Tylenol 325mg Tab) 650 mg PO Q4 PRN PRN Reason: Pain, Mild (1-3) Azathioprine (Imuran) 50 mg PO DAILY [facility] Last Admin: 04/15/18 10:48 Dose: 50 mg Enoxaparin Sodium (Lovenox) 40 mg SC DAILY [facility] Last Admin: 04/15/18 10:48 Dose: 40 mg Famotidine (Pepcid) 20 mg PO BID [facility] Last Admin: 04/15/18 10:48 Dose: 20 mg Hydroxychloroquine Sulfate (Plaquenil) 200 mg PO BID [facility]; Protocol Last Admin: 04/15/18 10:48 Dose: 200 mg Cefepime HCl (Maxipime Iv 1 Gm Premix) 1 gm in 50 mls @ 100 mls/hr IVPB Q12H [facility]; Protocol Last Admin: 04/15/18 00:30 Dose: 100 mls/hr Sodium Chloride (Sodium Chloride 0.9%) 1,000 mls @ 80 mls/hr IV .[id number] [facility] Last Admin: 04/15/18 05:30 Dose: 80 mls/hr Ibuprofen (Motrin Tab) 600 mg PO TID PRN PRN Reason: Fever >100.4 F Last Admin: 04/14/18 17:39 Dose: 600 mg Morphine Sulfate (Morphine) 4 mg IVP Q4 PRN PRN Reason: Pain, severe (8-10) Last Admin: 04/15/18 11:01 Dose: 4 mg Prednisone (Prednisone Tab) 10 mg PO DAILY [facility] Last Admin: 04/15/18 10:48 Dose: 10 mg - Labs Labs: 04/15/18 07:10 04/15/18 07:10 PT 13.1 SECONDS (9.7-12.2) H 04/11/18 14:14 INR 1.2 04/11/18 14:14 APTT 32 SECONDS (21-34) 04/11/18 14:14 - Constitutional Appears: Non-toxic, No Acute Distress - Head Exam Head Exam: ATRAUMATIC, NORMAL INSPECTION, NORMOCEPHALIC - Eye Exam Eye Exam: EOMI, Normal appearance - ENT Exam ENT Exam: Mucous Membranes Moist - Respiratory Exam Respiratory Exam: Clear to Ausculation Bilateral, NORMAL BREATHING PATTERN. a bsent: Rales, Rhonchi, Wheezes, Respiratory Distress, Stridor - Cardiovascular Exam Cardiovascular Exam: REGULAR RHYTHM, RRR, +S1, +S2 - GI/Abdominal Exam GI & Abdominal Exam: Soft. absent: Tenderness, Diminished Bowel Sounds - Extremities Exam Extremities Exam: Normal Inspection. absent: Pedal Edema, Tenderness - Back Exam Back Exam: CVA tenderness (L), CVA tenderness (R) - Neurological Exam Neurological Exam: Alert, Awake, Oriented x3 - Psychiatric Exam Psychiatric exam: Normal Affect, Normal Mood - Skin Skin Exam: Intact, Normal Color, Warm Assessment and Plan - Assessment and Plan (Free Text) Assessment: UTI Urology consult placed to Dr. Solomon Rockwell- F/U ID consult placed to Dr. Mota - [facility] appreciated CT abdomen pelvis- consider passed stone, no obstruction, areas of thickening consistent with UTI UA: +3 Leukocyte esterase, 397 WBC. Repeat UA and UC bc of initial low colony count Urine Cx: G- rods- follow up G&S Repeat UA 04/15: negative Blood Cx: NGTD Motrin PRN. Tylenol discontinued bc of elevated LFTs Morphine 2mg IVP q4prn breakthrough pain increased to Morphine 4 mg Cefepime 1g q12hrs f/u renal u/s 2/2 CVA tenderness Lupus Plaquenil 200mg PO BID Auto-immune hepatitis Imuran 50mg PO daily Elevated LFT's- monitoring Rheumatoid Arthritis Prednisone 10mg PO QD Plaquenil 200mg PO BID Imuran 50mg PO daily PPX Lovenox 40mg SC daily Pepcid 20mg PO BID Case discussed with Dr. Marinelli All medical management and planning per Dr. Sukhi Marinelli
--- NOTE | 2018-04-15 17:21 | CP.PCM.PN ---
Subjective - Date & Time of Evaluation Date of Evaluation: 04/15/18 Time of Evaluation: 09:00 - Subjective Subjective: afeb iv rx in progress Objective - Vital Signs/Intake and Output Vital Signs (last 24 hours): Temp Pulse Resp BP Pulse Ox 98.6 F 78 20 103/70 99 04/15/18 16:06 04/15/18 16:06 04/15/18 16:06 04/15/18 16:06 04/15/18 16:06 Intake and Output: 04/15/18 04/15/18 06:59 18:59 Intake Total 965 720 Balance 965 720 - Medications Medications: Current Medications Acetaminophen (Tylenol 325mg Tab) 650 mg PO Q4 PRN PRN Reason: Fever >100.4 F Acetaminophen (Tylenol 325mg Tab) 650 mg PO Q4 PRN PRN Reason: Pain, Mild (1-3) Azathioprine (Imuran) 50 mg PO DAILY [facility] Last Admin: 04/15/18 10:48 Dose: 50 mg Enoxaparin Sodium (Lovenox) 40 mg SC DAILY [facility] Last Admin: 04/15/18 10:48 Dose: 40 mg Famotidine (Pepcid) 20 mg PO BID [facility] Last Admin: 04/15/18 10:48 Dose: 20 mg Hydroxychloroquine Sulfate (Plaquenil) 200 mg PO BID [facility]; Protocol Last Admin: 04/15/18 10:48 Dose: 200 mg Cefepime HCl (Maxipime Iv 1 Gm Premix) 1 gm in 50 mls @ 100 mls/hr IVPB Q12H [facility]; Protocol Last Admin: 04/15/18 14:00 Dose: 100 mls/hr Ibuprofen (Motrin Tab) 600 mg PO TID PRN PRN Reason: Fever >100.4 F Last Admin: 04/14/18 17:39 Dose: 600 mg Morphine Sulfate (Morphine) 4 mg IVP Q4 PRN PRN Reason: Pain, severe (8-10) Last Admin: 04/15/18 11:01 Dose: 4 mg Prednisone (Prednisone Tab) 10 mg PO DAILY [facility] Last Admin: 04/15/18 10:48 Dose: 10 mg - Labs Labs: 04/15/18 07:10 04/15/18 07:10 PT 13.1 SECONDS (9.7-12.2) H 04/11/18 14:14 INR 1.2 04/11/18 14:14 APTT 32 SECONDS (21-34) 04/11/18 14:14 - Constitutional Appears: Non-toxic, Chronically Ill - Head Exam Head Exam: NORMOCEPHALIC - Eye Exam Eye Exam: PERRL - ENT Exam ENT Exam: Mucous Membranes Dry - Neck Exam Neck Exam: absent: Lymphadenopathy - Respiratory Exam Respiratory Exam: Decreased Breath Sounds - Cardiovascular Exam Cardiovascular Exam: REGULAR RHYTHM - GI/Abdominal Exam GI & Abdominal Exam: Distended, Soft - Rectal Exam Rectal Exam: Deferred - Exam Exam: NORMAL INSPECTION - Extremities Exam Extremities Exam: absent: Pedal Edema - Back Exam Back Exam: absent: CVA tenderness (L), CVA tenderness (R) Assessment and Plan (1) Pyelonephritis Status: Acute
--- NOTE | 2018-04-15 19:33 | CP.PCM.PN ---
Subjective - Date & Time of Evaluation Date of Evaluation: 04/15/18 Time of Evaluation: 07:30 - Subjective Subjective: clinically same Objective - Vital Signs/Intake and Output Vital Signs (last 24 hours): Temp Pulse Resp BP Pulse Ox 98.6 F 78 20 103/70 99 04/15/18 16:06 04/15/18 16:06 04/15/18 16:06 04/15/18 16:06 04/15/18 16:06 Intake and Output: 04/15/18 04/16/18 18:59 06:59 Intake Total 720 Balance 720 - Medications Medications: Current Medications Acetaminophen (Tylenol 325mg Tab) 650 mg PO Q4 PRN PRN Reason: Fever >100.4 F Acetaminophen (Tylenol 325mg Tab) 650 mg PO Q4 PRN PRN Reason: Pain, Mild (1-3) Azathioprine (Imuran) 50 mg PO DAILY [facility] Last Admin: 04/15/18 10:48 Dose: 50 mg Enoxaparin Sodium (Lovenox) 40 mg SC DAILY [facility] Last Admin: 04/15/18 10:48 Dose: 40 mg Famotidine (Pepcid) 20 mg PO BID [facility] Last Admin: 04/15/18 17:27 Dose: 20 mg Hydroxychloroquine Sulfate (Plaquenil) 200 mg PO BID [facility]; Protocol Last Admin: 04/15/18 17:27 Dose: 200 mg Cefepime HCl (Maxipime Iv 1 Gm Premix) 1 gm in 50 mls @ 100 mls/hr IVPB Q12H [facility]; Protocol Last Admin: 04/15/18 14:00 Dose: 100 mls/hr Ibuprofen (Motrin Tab) 600 mg PO TID PRN PRN Reason: Fever >100.4 F Last Admin: 04/14/18 17:39 Dose: 600 mg Morphine Sulfate (Morphine) 4 mg IVP Q4 PRN PRN Reason: Pain, severe (8-10) Last Admin: 04/15/18 17:25 Dose: 4 mg Prednisone (Prednisone Tab) 10 mg PO DAILY [facility] Last Admin: 04/15/18 10:48 Dose: 10 mg - Labs Labs: 04/15/18 07:10 04/15/18 07:10 PT 13.1 SECONDS (9.7-12.2) H 04/11/18 14:14 INR 1.2 04/11/18 14:14 APTT 32 SECONDS (21-34) 04/11/18 14:14 - Constitutional Appears: Well - Head Exam Head Exam: ATRAUMATIC, NORMAL INSPECTION, NORMOCEPHALIC - Eye Exam Eye Exam: EOMI, Normal appearance, PERRL Pupil Exam: NORMAL ACCOMODATION, PERRL - ENT Exam ENT Exam: Mucous Membranes Moist, Normal Exam - Neck Exam Neck Exam: Full ROM, Normal Inspection. absent: Lymphadenopathy - Respiratory Exam Respiratory Exam: Decreased Breath Sounds - Cardiovascular Exam Cardiovascular Exam: REGULAR RHYTHM, +S1, +S2 - GI/Abdominal Exam GI & Abdominal Exam: Soft, Diminished Bowel Sounds - Rectal Exam Rectal Exam: Deferred
[2018-04-15 23:37] VITALS: O2SAT 97
[2018-04-16] MEDS: Morphine 4 MG/ML VIAL IVP PRN ×2 (00:20→11:05)
[2018-04-16] MEDS: Cefepime IV 1 gm in Dextrose 1 GM/50 ML BAG IVPB SCH ×2 (00:29→13:00)
[2018-04-16 06:46] LABS: BASO % 0.4 % (0.0-2.0); EOS # 0.2 K/uL (0.0-0.7); EOS % 3.3 % (0.0-4.0); HEMOGLOBIN 14.4 g/dL (11.0-16.0); LYMPH # 1.9 K/uL (1.0-4.3); LYMPH % 32.1 % (20.0-40.0); MEAN CELL VOLUME 89.4 fL (81.0-99.0); MEAN CORPUSCULAR HEMOGLOBIN 31.2 pg (27.0-31.0); MEAN CORPUSCULAR HGB CONC 34.9 g/dL (33.0-37.0); MEAN PLATELET VOLUME 8.3 fL (7.2-11.7); MONO # 0.5 K/uL (0.0-0.8); MONO % 7.7 % (0.0-10.0); NEUT # 3.4 K/uL (1.8-7.0); NEUT % 56.5 % (50.0-75.0); NRBC % 0.1 % (0.0-2.0); RBC 4.6 Mil/uL (3.80-5.20); RED CELL DISTRIBUTION WIDTH 12.8 % (11.5-14.5)
--- NOTE | 2018-04-16 07:42 | CP.PCM.PN ---
Subjective - Date & Time of Evaluation Date of Evaluation: 04/16/18 Time of Evaluation: 10:40 - Subjective Subjective: PGY 3 Med Note- Dr. Yeison Marinelli's service Patient seen and examined in no acute distress. Patient denies subjective fevers or chills. Patient is admitting to bilateral flank pain; right greater than left. She is tolerating an appetite. She denies nausea at this time. Objective - Vital Signs/Intake and Output Vital Signs (last 24 hours): Temp Pulse Resp BP Pulse Ox 98.8 F 71 20 118/76 97 04/16/18 05:30 04/15/18 23:34 04/15/18 23:34 04/15/18 23:34 04/15/18 23:34 Intake and Output: 04/16/18 04/16/18 06:59 18:59 Intake Total 765 Balance 765 - Medications Medications: Current Medications Acetaminophen (Tylenol 325mg Tab) 650 mg PO Q4 PRN PRN Reason: Fever >100.4 F Acetaminophen (Tylenol 325mg Tab) 650 mg PO Q4 PRN PRN Reason: Pain, Mild (1-3) Azathioprine (Imuran) 50 mg PO DAILY [facility] Last Admin: 04/15/18 10:48 Dose: 50 mg Enoxaparin Sodium (Lovenox) 40 mg SC DAILY [facility] Last Admin: 04/15/18 10:48 Dose: 40 mg Famotidine (Pepcid) 20 mg PO BID [facility] Last Admin: 04/15/18 17:27 Dose: 20 mg Hydroxychloroquine Sulfate (Plaquenil) 200 mg PO BID [facility]; Protocol Last Admin: 04/15/18 17:27 Dose: 200 mg Cefepime HCl (Maxipime Iv 1 Gm Premix) 1 gm in 50 mls @ 100 mls/hr IVPB Q12H [facility]; Protocol Last Admin: 04/16/18 00:29 Dose: 100 mls/hr Ibuprofen (Motrin Tab) 600 mg PO TID PRN PRN Reason: Fever >100.4 F Last Admin: 04/14/18 17:39 Dose: 600 mg Morphine Sulfate (Morphine) 4 mg IVP Q4 PRN PRN Reason: Pain, severe (8-10) Last Admin: 04/16/18 00:20 Dose: 4 mg Prednisone (Prednisone Tab) 10 mg PO DAILY [facility] Last Admin: 04/15/18 10:48 Dose: 10 mg - Labs Labs: 04/16/18 06:22 04/15/18 07:10 PT 13.1 SECONDS (9.7-12.2) H 04/11/18 14:14 INR 1.2 04/11/18 14:14 APTT 32 SECONDS (21-34) 04/11/18 14:14 - Constitutional Appears: Non-toxic, No Acute Distress - Head Exam Head Exam: ATRAUMATIC, NORMAL INSPECTION - Eye Exam Eye Exam: EOMI, Normal appearance Pupil Exam: NORMAL ACCOMODATION - ENT Exam ENT Exam: Mucous Membranes Moist - Neck Exam Neck Exam: Full ROM - Respiratory Exam Respiratory Exam: NORMAL BREATHING PATTERN - Cardiovascular Exam Cardiovascular Exam: +S1, +S2 - GI/Abdominal Exam GI & Abdominal Exam: Soft, Tenderness (flank tenderness noted bilaterally ( right greater than left)), Normal Bowel Sounds - Extremities Exam Extremities Exam: Full ROM - Neurological Exam Neurological Exam: Alert, Awake, Oriented x3 - Psychiatric Exam Psychiatric exam: Normal Affect, Normal Mood - Skin Skin Exam: Normal Color, Warm Assessment and Plan - Assessment and Plan (Free Text) Assessment: Assessment: UTI ID consult placed to Dr. Svetlana dominguez appreciated CT abdomen pelvis- consider passed stone, no obstruction, areas of thickening consistent with UTI UA: +3 Leukocyte esterase, 397 WBC. Repeat UA and UC bc of initial low colony count Urine Culture 04/11: Gram negative rods. Repeat UA 04/15: negative. Repeat urine culture pending. Will f/u outpatient. Blood Culture: No growth Motrin PRN. Tylenol discontinued bc of elevated LFTs Morphine 2mg IVP q4prn breakthrough pain increased to Morphine 4 mg Cefepime 1g q12hrs Renal U/S shows 3.5mm non obstructing calculus (left). Stable for DC from Urology standpoint with outpatient follow up in the office. Lupus Plaquenil 200mg PO BID Auto-immune hepatitis Imuran 50mg PO daily Elevated LFT's- monitoring Rheumatoid Arthritis Prednisone 10mg PO QD Plaquenil 200mg PO BID Imuran 50mg PO daily PPX Lovenox 40mg SC daily Pepcid 20mg PO BID Discharge Instructions Patient is medically stable for discharge home. Patient to follow up with Dr. Yeison Marinelli within one week. Patient to follow up with Urologist, Dr. Alberto Rockwell within one week. Patient to increase water intake. Patient to take Diclofenac 100 mg every 8 hours only as needed for pain control. Patient should take Augmentin antibiotics every twelve hours for 7 days. Patient should eat a probiotic yogurt everyday while she is on antibiotics. If symptoms return go to the emergency room Instructions explained to patient who is aware. Please take care and feel better. Case discussed with Dr. Marinelli. All medical management and planning per Dr. Sukhi Marinelli
[2018-04-16 07:46] LABS: ALBUMIN 3.3 g/dL (3.5-5.0); ALT/SGPT 61 U/L (9-52); AST/SGOT 45 U/L (14-36); BLOOD UREA NITROGEN 11 mg/dL (7-17); CALCIUM 8.8 mg/dl (8.6-10.4); GFR NON-AFRICAN AMERICAN > 60
[2018-04-16 08:21] VITALS: BP 111/74; PULSE 67; TEMP 97.7
[2018-04-16] MEDS: Enoxaparin 40 mg Syringe SC SCH (11:00)
--- NOTE | 2018-04-16 13:56 | CP.PCM.PN ---
Subjective - Date & Time of Evaluation Date of Evaluation: 04/16/18 Time of Evaluation: 08:00 - Subjective Subjective: clinically same Objective - Vital Signs/Intake and Output Vital Signs (last 24 hours): Temp Pulse Resp BP Pulse Ox 97.7 F 67 20 111/74 97 04/16/18 08:00 04/16/18 08:00 04/16/18 08:00 04/16/18 08:00 04/16/18 08:00 Intake and Output: 04/16/18 04/16/18 06:59 18:59 Intake Total 765 Balance 765 - Medications Medications: Current Medications Acetaminophen (Tylenol 325mg Tab) 650 mg PO Q4 PRN PRN Reason: Fever >100.4 F Acetaminophen (Tylenol 325mg Tab) 650 mg PO Q4 PRN PRN Reason: Pain, Mild (1-3) Azathioprine (Imuran) 50 mg PO DAILY [facility] Last Admin: 04/16/18 11:00 Dose: 50 mg Enoxaparin Sodium (Lovenox) 40 mg SC DAILY [facility] Last Admin: 04/16/18 11:00 Dose: 40 mg Famotidine (Pepcid) 20 mg PO BID [facility] Last Admin: 04/16/18 11:00 Dose: 20 mg Hydroxychloroquine Sulfate (Plaquenil) 200 mg PO BID [facility]; Protocol Last Admin: 04/16/18 11:00 Dose: 200 mg Cefepime HCl (Maxipime Iv 1 Gm Premix) 1 gm in 50 mls @ 100 mls/hr IVPB Q12H [facility]; Protocol Last Admin: 04/16/18 00:29 Dose: 100 mls/hr Ibuprofen (Motrin Tab) 600 mg PO TID PRN PRN Reason: Fever >100.4 F Last Admin: 04/14/18 17:39 Dose: 600 mg Morphine Sulfate (Morphine) 4 mg IVP Q4 PRN PRN Reason: Pain, severe (8-10) Last Admin: 04/16/18 11:05 Dose: 4 mg Prednisone (Prednisone Tab) 10 mg PO DAILY [facility] Last Admin: 04/16/18 11:00 Dose: 10 mg - Labs Labs: 04/16/18 06:22 04/16/18 06:22 PT 13.1 SECONDS (9.7-12.2) H 04/11/18 14:14 INR 1.2 04/11/18 14:14 APTT 32 SECONDS (21-34) 04/11/18 14:14 - Constitutional Appears: Well - Head Exam Head Exam: ATRAUMATIC, NORMAL INSPECTION, NORMOCEPHALIC - Eye Exam Eye Exam: EOMI, Normal appearance, PERRL Pupil Exam: NORMAL ACCOMODATION, PERRL - ENT Exam ENT Exam: Mucous Membranes Moist, Normal Exam - Neck Exam Neck Exam: Full ROM, Normal Inspection. absent: Lymphadenopathy - Respiratory Exam Respiratory Exam: Decreased Breath Sounds - Cardiovascular Exam Cardiovascular Exam: REGULAR RHYTHM, +S1, +S2 - GI/Abdominal Exam GI & Abdominal Exam: Soft, Diminished Bowel Sounds - Rectal Exam Rectal Exam: Deferred
--- NOTE | 2018-04-19 11:43 | US ---
Date of service: 04/15/2018 PROCEDURE: Ultrasound of the Kidneys HISTORY: r/o hydronephrosis COMPARISON: 08/26/2016. Abdominal ultrasound.. TECHNIQUE: Sonogram of the kidneys. FINDINGS: RIGHT KIDNEY: Measures: 4.7 x 5.8 x 12.7 cm. Normal in size, contour and echogenicity. No stone, solid mass lesion or hydronephrosis visualized. LEFT KIDNEY: Measures: 5.6 x 6.2 x 11.8 cm. Normal in size, contour and echogenicity. Incidental finding(s): 3.5 mm calculus midpole nonobstructing. OTHER FINDINGS: None. IMPRESSION: No evidence of hydronephrosis or other significant pathologic process.
--- NOTE | 2018-04-19 13:23 | CON ---
DATE: 04/19/2018 UROLOGY CONSULTATION REASON FOR THE CONSULTATION: Pyelonephritis. HISTORY OF PRESENT ILLNESS: Ms. Chaudhry is a very pleasant lady who was admitted under hospital care. She has flank pain. IMAGING: See the plans below. There is no obvious definite stone. The patient is complaining of flank pain that radiates towards the groin. Also complaining of dysuria. Currently, no gross hematuria. Questionable stones. PAST MEDICAL HISTORY: As listed. PAST SURGICAL HISTORY: As listed. No history of [place] or CVA. MEDICATIONS: See chart. ALLERGIES: SEE CHART. REVIEW OF SYSTEMS: Listed above. Otherwise, noncontributory. PHYSICAL EXAMINATION: GENERAL: Well-nourished female, she is currently resting comfortably. ABDOMEN: Overall soft. Not grossly distended. No evidence of rebound or guarding. PELVIC: Deferred at this point. Mild CVA tenderness. IMAGING: See the CT scan report. See the plan below (we will get an ultrasound). DIAGNOSES: Dysuria, frequency, flank pain, abdominal pain, all consistent with urinary tract infection, possibility of pyelonephritis as well. So, from a urology standpoint, the plan is as follows: 1. Maintain antibiotics. 2. Analgesics. 3. No plan for cystoscopy at this point. We will repeat an ultrasound. If there is any hydronephrosis, we will address it. If not, we will just continue to monitor the patient, provide antibiotics and analgesics, and then recommend outpatient followup assuming that the ultrasound does not show any form of hydronephrosis. Further plans will follow, but there are no plans for any intervention at this point. Yrn Rockwell MD
== END 2018-04-16 14:57 | disposition home or self-care (01) | DRG 320 ==
LOC: C.ER 13:10 → C.9E 16:24 → C.3T 16:47
PROVIDERS: ADMIT Internal Medicine Nephrology; ATTEND Internal Medicine Nephrology
DX: N12 Tubulo-interstitial nephritis, not specified as acute or chronic (principal); M32.9 Systemic lupus erythematosus, unspecified; K75.4 Autoimmune hepatitis; M54.10 Radiculopathy, site unspecified; Z87.891 Personal history of nicotine dependence; M06.9 Rheumatoid arthritis, unspecified